=== PATIENT | male | born 1950 | race Caucasian/White ===

== ENCOUNTER → 2019-10-17 14:31 | Outpatient (CLI) | payer MEDICARE ==
[~2019-10-17 14:31] MED LIST: ALBUTEROL SULF8.5 GM INH; BAYER CHEWABLE81 MG PO; KLONOPIN1 MG PO; SYNTHROID50 MCG PO; TRAZODONE HCL150 MG PO
[2019-10-19 13:50] VITALS: BMI 21.3
== END | disposition home or self-care (01) ==
LOC: D.CT 14:31
PROVIDERS: ATTEND Family Medicine
DX: R06.02 Shortness of breath (principal); I45.19 Other right bundle-branch block

== ENCOUNTER 2019-10-19 12:18 | Inpatient (IN) | payer MEDICARE ==
[~2019-10-19] VITALS: Ht 175.3 cm; Wt 66.8 kg
--- NOTE | ~2019-10-19 | HEMODYNAMI ---
PATIENT:EN RAINEY MEDICAL RECORD: [id number] : 48 [id number] ADMISSION DATE: 10/19/19 Generatedon:10/20/20199:56 Patient name: EN RAINEY Patient #: [id number] SSN: [id number] : 1950 Date of study: 10/20/2019 Page: Of Hemodynamic Procedure Report Patient Data Patient Demographics Procedure consent was obtained First Name: EN Gender: Male Last Name: REDD : 1950 Patient #: [id number] Age: 69 year(s) Race: SSN: [id number] Additional ID: [id number] Contact details Address: [address] [place] [address] State: [place] City: [place] Zip code: [address] Admission Admission Data Admission Date: 10/19/2019 Admission Time: 12:18 Arrival Date: 10/20/2019 Arrival Time: 12:18 Admit Source: Other Insurance Payor: Medicare Room #: D.2117 [facility] #: [id number] Height (in.): 68.9 BSA: 1.79 (m2) Height (cm.): 175 BMI: 21.22 (kg/m2) Weight (lbs.): 143.3 Weight (kg.): 65 Lab Results Lab Result Date: 10/20/2019 Lab Result Time: 0:00 Biochemistry Name Units Result Min Max BUN mg/dl 22 --(----)-* 7 18 Creatinine mg/dl 1.1 --(--*-)-- 0.6 1.3 eGFR ml/min 70.73025 *-(----)-- 90 120 NONAFRICAN CBC Name Units Result Min Max Hemoglobin g/dl 14.7 --(-*--)-- 13.5 17.5 Procedure Procedure Types Cath Procedure Diagnostic Procedure [facility] w/Coronaries Sedation Charges Moderate Sedation up to 15 minutes Procedure Description Procedure Date Procedure Date: 10/20/2019 Procedure Start Time: 9:41 Procedure End Time: 9:54 Procedure Staff Name Function Tamara Post MD Performing Physician Isabel Lee RT Monitor Ruth Bustamante RT Scrub Kate Jackson RN Nurse Indication Angina Procedure Data Cath Procedure Fluoroscopy Diagnostic fluoroscopy Total fluoroscopy Time: 2 time: 2 min min Diagnostic fluoroscopy Total fluoroscopy dose: 254 dose: 254 mGy mGy Contrast Material Contrast Material Type Amount (ml) Isovue 300 45 Entry Location Entry Primary Successful Side Size Upsize Upsize Entry Closure Cueva ccessful Closure Location (Fr) 1 (Fr) 2 (Fr) Remarks Device Remarks Radial Right 6 Fr Mechanical artery Short Compression Estimated blood loss: 5 ml Diagnostic catheters Device Type Used For End Catheter Placement DIAGNOSTIC [place] 110cm 5 Multi-vessel Fr catheter ([id number]) Angiography Procedure Complications No complications Procedure Medications Medication Administration Route Dosage Oxygen etCO2 Nasal cannula 2 l/min Lidocaine 2% added to field 20 Heparin Flush Bag added to field 2 bags (1000units/500ml NS) 0.9% NaCl I.V. bolus 500 ml Radial Cocktail I.A. 1 syringe (Verapamil 2mg/Nitro 400mcg/Heparin 1500units) Plavix P.O. 300 mg Versed I.V. 1 mg Hemodynamics Rest BSA: 1.79 (m2) HGB: 14.7 (g/dl) O2 Consumption: Estimated: 206.93 (ml/min) O2 Co nsumption indexed: Estimated:115.6 (ml/min/m) Heart Rate: 70 (bpm) Pressure Samples Time Site Value (mmHg) Purpose Heart Use Rate(bpm) 9:46 LV 118/-9,6 Snapshot 87 9:47 LV 82/4,4 EDP 85 Snapshots Pre Cath Intra NCS Post Cath Vital Signs Time Heart Resp SPO2 etCO2 NIBP (mmHg) Rhythm Pain Sedation Rate (ipm) (%) (mmHg) Status Level (bpm) 9:23:36 72 10 96 32.4 123/74(103) NSR 0 (11) 10(A) , No pain 9:27:46 70 10 97 24.1 111/80(95) NSR 0 (11) 10(A) , No pain 9:31:52 66 25 96 27.1 116/77(97) NSR 0 (11) 10(A) , No pain 9:36:00 67 24 96 25.6 118/75(100) NSR 0 (11) 10(A) , No pain 9:40:10 72 28 95 24.1 116/73(88) NSR 0 (11) 10(A) , No pain 9:44:18 71 29 96 21 122/75(89) NSR 0 (11) 10(A) , No pain 9:48:27 77 24 93 24 103/72(84) NSR 0 (11) 10(A) , No pain 9:52:31 71 23 95 24.8 110/73(84) NSR 0 (11) 10(A) , No pain Medications Time Medication Route Dose Verified Delivered Reason Notes Effectiveness by by 9:22:45 Oxygen etCO2 2 l/min Tamara Love used for Nasal Sincere Jackson RN procedure cannula 9:22:53 Lidocaine 2% added 20ml Elissared Tamara for local to vial Sincere Post MD anesthetic field 9:22:58 Heparin Flush added 2 bags Tamara Mcdonald used for Bag to Sincere Post MD procedure (1000units/500ml field NS) 9:23:07 0.9% NaCl I.V. 500 ml Tamara Love Per bolus Sincere Jackson RN physician 9:38:12 Versed I.V. 1 mg Tamara Love for sedation Sincere Jackson RN 9:43:18 Radial Cocktail I.A. 1 Tamara Mcdonald for (Verapamil syringe Sincere Post MD vasodilation 2mg/Nitro 400mcg/Heparin 1500units) 9:45:39 Plavix P.O. 300 mg Tamara Love for Sincere Jackson RN antiplatelet therapy Procedure Log Time Note 9:00:13 Kate Jackson RN sent for patient. Start room use. 9:07:52 Diagnostic Cath Status : Elective 9:08:19 Indication : Angina 9:08:52 Informed consent obtained and on chart 9:12:14 Admit Source: Other 9:12:16 Arrival Date: 10/20/2019 12:18:00 PM 9:12:43 Insurance Payor : Medicare 9:12:51 Patient Height : 68.9 inches 9:12:56 Patient Weight : 143.3 lbs 9:13:38 Lab Result : eGFR NONAFRICAN 70.04291 ml/min 9:13: Lab Result : Creatinine 1.1 mg/dl : Lab Result : BUN 22 mg/dl : Lab Result : Hemoglobin 14.7 g/dl 9::19 Time tracking: Regular hours (M-F 7:00 - 5:00) 9::23 Plan of Care:Hemodynamics will remain stable., Cardiac rhythm will remain stable., Comfort level will be maintained., Respiratory function will remain adequate., Patient/ family verbilizes understanding of procedure., Procedure tolerated without complication., Recovers from procedure without complications.. 9:14:28 Patient received from Med II to CCL 2 Alert and oriented. Tansferred to table in Supine position. 9:14:29 Warm blankets applied, and kiara hugger turned on for patient comfort. 9:14:30 Correct patient and procedure confirmed by team. 9:14:30 ECG and BP/O2 sat monitors applied to patient. 9:22:34 Vital chart was started 9:22:45 Oxygen 2 l/min etCO2 Nasal cannula was administered by Kate Jackson RN; used for procedure; Verbal order read back and verified. 9:22:53 Lidocaine 2% 20ml vial added to field was administered by Tamara Post MD; for local anesthetic; Verbal order read back and verified. 9:22:58 Heparin Flush Bag (1000units/500ml NS) 2 bags added to field was administered by Tamara Post MD; used for procedure; Verbal order read back and verified. 9:23:07 0.9% NaCl 500 ml I.V. bolus was administered by Kate Jackson RN; Per physician; Verbal order read back and verified. 9:23:56 Baseline sample Acquired. 9:24:00 Rhythm: sinus rhythm 9:24:02 Full Disclosure recording started 9:24:07 H&P Date Dictated: 10/20/2019 New H&P dictated by physician.. 9:24:08 Pre-procedure instructions explained to patient. 9:24:09 Pre-op teaching completed and patient verbalized understanding. 9:24:10 Family in patients room. 9:24:12 Patient NPO since Midnight. 9:24:15 Is the patient allergic to Iodine/contrast media? No. 9:24:16 Was the patient premedicated? Yes 9:24:49 Is patient on blood thinner?Yes 9:24:52 ACC The patient was administered the following blood thiners within the last 24 hours: ACCAspirin 9:24:54 Patient diabetic? Yes. 9:24:54 If diabetic: On Metformin? No 9:24:57 Previous problem with sedation/anesthesia? No ? 9:24:58 Snore? Yes 9:24:59 Sleep apnea? No 9:25:00 Deviated septum? No 9:25:00 Opens mouth fully? Yes 9:25:01 Sticks out tongue? Yes 9:25:07 Airway obstruction? Yes COPD EMPHYSEMA 9:25:11 Dentures? Yes OUT 9:25:14 Pre procedure: right dorsailis pedis pulse 2+ Normal; easily identifiable; not easily obliterated 9:25:16 Pre procedure: left dorsailis pedis pulse 2+ Normal; easily identifiable; not easily obliterated 9:25:18 Patient pain scale 0/10 ?. 9:25:24 IV patent on arrival in left forearm with 0.9% NaCl at [facility]. 9:25:27 Lab results completed and on chart. 9:25:31 Risk of Mortality: 1.5 9:25:44 Risk of blood transfusion: 1.1 9:25:47 Risk of ASHOK: 0.4 9:25:52 Right Radial & Right Groin area was prepped with chlora-prep and draped in sterile fashion 9:25:54 Alarms reviewed by R. N. 9:25:54 Sharps counted by scrub and verified by R.N. 9:37:57 --------ALL STOP TIME OUT------ 9:37:57 Final Timeout: patient, procedure, and site verified with staff and physician. All members of the team are in agreement. 9:37:59 Right Radial & Right Groin site verified by team. 9:38:02 Fire Safety Assessment: A--An alcohol-based skin anteseptic being used preoperatively., C--Open oxygen or nitrous oxide is being used., D--An ESU, laser, or fiber-optic light is being used. 9:38:05 Physical assessment completed. ASA score P 2 - A patient with mild systemic disease as per Tamara Post MD. 9:38:08 2) 60-89 Mildly reduced kidney function, and other findings (as for stage 1) point to kidney disease. 9:38:12 Versed 1 mg I.V. was administered by Kate Jackson RN; for sedation; Verbal order read back and verified. 9:38:12 Maximum allowable contrast dose (3.7 X eGFR X 0.75)194 ml. 9:38:16 Sedation plan: IV Moderate Sedation Medication:Versed, Fentanyl 9:38:25 Use device set Radial Dx or PCI 9:38:27 ACIST Syringe (82178) opened to sterile field. 9:38:27 Medline Cath Pack ([id number]) opened to sterile field. 9:38:27 Bag Decanter (2002) opened to sterile field. 9:38:28 ACIST Hand Control (19675) opened to sterile field. 9:38:28 ACIST Manifold (79135) opened to sterile field. 9:38:28 Tegaderm 4 x 4 (1626W) opened to sterile field. 9:38:30 MBrace Wrist Support ([id number]) opened to sterile field. 9:38:32 EMERALD Guide Wire (631-929) opened to sterile field. 9:38:32 SHEATH 6FR RAIN (5975142) opened to sterile field. 9:41:53 Procedure started. 9:41:58 Local anesthetic to right radial artery with Lidocaine 2% by Tamara Post MD.INITIAL ACCESS ONLY 9:42:07 A 6 Fr Short sheath was inserted into the Right Radial artery 9:42:19 Zero performed for pressure channel P1 9:43:18 Radial Cocktail (Verapamil 2mg/Nitro 400mcg/Heparin 1500units) 1 syringe I.A. was administered by Tamara Post MD; for vasodilation; Verbal order read back and verified. 9:45:03 A DIAGNOSTIC [place] 110cm 5 Fr catheter (163533) was advanced over the wire and used for Multi-vessel Angiography. 9:45:39 Plavix 300 mg P.O. was administered by Kate Jackson RN; for antiplatelet therapy; Verbal order read back and verified. 9:46:36 LV hemodynamics recorded. 9:46:37 LV gram done using CARLOS 9:46:40 Injector settings: Ml/sec: 12, Volume: 8, 9:46:59 EF : 60 % 9:47:28 RCA angiography performed. 9:47:33 Injector settings: Ml/sec: 2, Volume: 4, 9:49:06 LCA angiography performed. 9:49:08 Injector settings: Ml/sec: 2, Volume: 4, 9:51:07 Catheter removed. 9:51:44 ZEPHYR REGULAR TR BAND (325706) opened to sterile field. 9:52:23 Sheath removed intact; hemostasis achieved with Mechanical Compression to the Right Radial artery. 9:52:25 Procedure ended.(Physican Out) 9:53:06 Fluoroscopy time 02.00 minutes. 9:53:10 Fluoroscopy dose: 254 mGy 9:53:10 Flurop Dose total: 254 9:53:14 Dose Area Product 87893 mGy/cm. 9:53:19 Contrast amount:Isovue 300 45ml. 9:53:21 Maximum allowable dose exceeded? No. 9:53:22 Sharps counted by scrub and verified by R.N. 9:53:25 Palmer band inflated with 9cc of air. 9:53:26 Insertion/operative site no bleeding no hematoma. 9:53:30 Post right radial artery:stable 9:53:32 Post Procedure Pulses reassessed and unchanged 9:53:35 Post procedure rhythm: unchanged. 9:53:37 Estimated blood loss: 5 ml 9:53:38 Post procedure instruction explained to patient.Patient verbalizes understanding. 9:53:39 Patient needs reinforcement of post procedure teaching. 9:53:48 Procedure type changed to Cath procedure, Diagnostic procedure, C, [facility] w/Coronaries, Sedation Charges, Moderate Sedation up to 15 minutes 9:53:49 Procedure and supply charges have been captured, reviewed, submitted and are correct. 9:53:53 Procedure Complication : No complications 9:53:56 Vital chart was stopped 9:53:59 [facility] Findings: MVD- MD will discuss options w/ pt 9:54:01 Operative report dictated upon procedure completion. 9:54:01 See physician's report for complete and final results. 9:54:03 Report given to [facility]. 9:54:05 Patient transfered to [facility] with Stretcher. 9:54:08 Procedure ended. 9:54:08 Full Disclosure recording stopped 9:54:16 End room use (Document Last) 9:54:49 End room use (Document Last) Device Usage Item Name Manufacture Quantity Catalog Hospital Part Current [facility] l Lot# / Number Charge Number Stock Stock Serial# Code ACIST Acist 1 [id number] 196815 [id number] 20 Syringe Medical (48199) Systems Inc Medline Medline 1 [id number] [id number] 74069 603797 5 Cath Pack ([id number]) Bag Microtek 1 2001S 303135 62404 987856 5 Decanter Medical Inc. () ACIST Hand Acist 1 81279 689680 765455 184337 5 Control Medical (29636) Systems Inc ACIST Acist 1 60159 726757 321310 668942 5 Manifold Medical (41499) Systems Inc Tegaderm 4 3M 1 1626W 240668 348366 799338 5 x 4 (1626W) MBrace Advanced 1 [id number] 452862 43634 871775 5 Wrist Vascular Support Dynamics ([id number]) EMERALD Cardinal 1 692-098 491188 460028 610204 5 Guide Wire Health (149-456) SHEATH 6FR Cardinal 1 0623495 819213 6274898 390442 5 [facility] (1608042) DIAGNOSTIC Terumo 1 35-6101 289742 025618 108188 5 [place] 110cm 5 Fr catheter (279111) ZEPHYR Cardinal 1 960410 347044 6821737 284623 5 REGULAR TR Health BAND (593838) Signature Audit [place] Stage Time Signature Unsigned Intra-Procedure 10/20/2019 Ruth Bustamante 9:54:49 AM RT(R) Intra-Procedure 10/20/2019 Kate Jackson RN 9:55:13 AM Intra-Procedure 10/20/2019 Tamara Post MD 9:56:37 AM Signatures Performing Physician : Signature : Tamara Post MD Date : Time : Monitor : Isabel Lee Signature : RT Date : Time : Nurse : Kate Jackson RN Signature : Date : Time : [address] [place] [address]
[2019-10-19] MEDS ORDERED: TRAZODONE HCL150 MG PO (12:49)
[2019-10-19] MEDS ORDERED: SYNTHROID50 MCG PO (12:49)
[2019-10-19] MEDS ORDERED: BAYER CHEWABLE81 MG PO (12:51)
[2019-10-19] MEDS ORDERED: KLONOPIN1 MG PO (12:51)
[2019-10-19 12:52] VITALS: BP 124/69; BMI 21.3
[2019-10-19] MEDS ORDERED: ALBUTEROL SULF8.5 GM INH (12:52)
--- NOTE | 2019-10-19 13:16 | NUR ---
1232-RECEIVED TO ROOM VIA WHEELCHAIR WITH COMPLAINTS OF LEFT ARM TINGLING X 4-6 WEEKS. DENIES CHEST PAIN . WILL ADMIT.
--- NOTE | 2019-10-19 13:25 | NUR ---
22 G X 1 STICK TO LEFT WRIST. TOLERATED WELL. SWAP CAP PLACED AND LINE DATED. DR KINNEY IN AT BEDSIDE TO SEE PATIENT AND SPOUSE. CALL LIGHT IN USE AND ALL FALL PRECAUTIONS IN PLACE EXCEPT ALARM. PATIENT STATES HE WILL USE THE CALL LIGHT. ALERT AND ORIENTED.
[2019-10-19 13:33] LABS: BASOPHILS 0.2 % (0-2); EOSINOPHILS 0.2 % (0-7); HEMATOCRIT 43.4 % (42.0-54.0); HEMOGLOBIN 14.7 g/dL (13.5-17.5); IMMATURE GRANULOCYTES 0.3 % (0-5); MCH 28.5 pg (26.0-34.0); MCHC 33.9 g/dL (31.0-37.0); MCV 84.3 fL (80.0-100.0); MEAN PLATELET VOLUME 8.8 fL (7.4-10.4); MONOCYTES 7.4 % (2-11); NEUTROPHILS 83.9 % (40-80); PLATELET COUNT 269 10x3/uL (130-400); RBC 5.15 10x6/uL (4.20-6.10); WBC 10.7 10x3/uL (4.8-10.8)
[2019-10-19 14:07] LABS: CALC OSMOLALITY 276 mosm/kg (275-300); CALCIUM 8.8 mg/dL (8.5-10.1); CARBON DIOXIDE 31.7 mmol/L (21.0-32.0); CHLORIDE - SERUM 102 mmol/L (98-107); CKMB 1.5 U/L (0.0-3.6); CREATINE KINASE 50 UL (21-232); CREATININE - SERUM 1.1 mg/dL (0.6-1.3); GLUCOSE 106 mg/dL (74-106); POTASSIUM - SERUM 4.4 mmol/L (3.5-5.1); SODIUM 137 mmol/L (136-145); UREA NITROGEN 22 mg/dL (7-18); eGFR NON AFRICAN AMERICAN 70 mL/min (90-120)
[2019-10-19 14:09] LABS: TROPONIN-I < 0.017 ng/mL (0.000-0.060)
[2019-10-19 14:29] LABS: CHOL - HDL RATIO 3.1 ratio (2.3-4.9); LDL-HDL RATIO 1.8 ratio (1.5-3.5)
[2019-10-19 16:05] VITALS: BP 126/76
[2019-10-19 20:00] VITALS: BP 113/70
[2019-10-20] VITALS: BP 114/59
[2019-10-20 04:00] VITALS: BP 125/72
--- NOTE | 2019-10-20 08:15 | HP ---
PATIENT: EN RAINEY MEDICAL RECORD: [id number] ACCOUNT: [id number] LOCATION:[address] : [birth year] ADMISSION DATE: 10/19/19 PCP: YSABEL KINNEY MD HISTORY AND PHYSICAL EXAMINATION REASON FOR ADMISSION: Exertional shortness of breath and left arm tingling. HISTORY OF PRESENT ILLNESS: The patient is a 69-year-old male with history of well-controlled metabolic syndrome and remote heavy smoking history. He states for the last 6 months he has had fatigue, but noticed if he walked any distance or up a hill he would develop acute shortness of breath, had to stop and rest. The last week, he has noticed his left arm will tingle as well during these episodes. He denies any cough. He came to the office yesterday with these symptoms. An EKG showed a new right bundle branch block. His saturation is 90% on room air, but would drop with ambulation to 92%. CTA of the lungs was done yesterday showing no evidence of PE, but did show coronary calcifications. Echo this morning showed an EF of 60% with no wall motion abnormalities. He is now being directly admitted to observation for cardiology evaluation. He has been extremely fatigued. PAST MEDICAL HISTORY: COPD, greater than 30+ pack year history of smoking, history of left adrenal adenoma, anxiety, chronic osteoarthritis, BPH, symptomatic cholelithiasis, type 2 diabetes mellitus with A1c of 5.6, history of kidney stones, hypothyroidism. PAST SURGICAL HISTORY: He has had kidney stones removed previously. FAMILY HISTORY: Father at 81, had cancer of the prostate, diabetes and of a stroke. Mother is alive with arthritis. One brother with rectal cancer, living. SOCIAL HISTORY: He is retired, remote smoker, 30+ pack year history of smoking. Occasional alcohol. He is . REVIEW OF SYSTEMS: GENERAL: Fatigue for the last 6 months. No weight change. HEENT: Wears glasses to read. No recent visual change, sinus congestion, sore throat, or hearing loss. RESPIRATORY: Denies cough, congestion, but on walking any distance or up a hill he will develop acute onset of shortness of breath and have to stop. CARDIAC: He has exertional left arm tingling with dyspnea. No peripheral edema. No palpitations. GASTROINTESTINAL: No nausea, vomiting, change in stools or blood per rectum. He does have postprandial right upper quadrant dyspepsia intermittently with loose stools. He has fatty food intolerance. GENITOURINARY: Nocturia once nightly. ENDOCRINE: Denies polyuria, polydipsia, heat or cold intolerance. NEUROLOGIC: No history of stroke, TIA or vascular headaches. INTEGUMENT: No rash or itching. PHYSICAL EXAMINATION: VITAL SIGNS: His height is 5 feet 9 inches, his weight is 144.2 pounds, BMI is 21.3, blood pressure 120/62, sats ____ on room air at rest, 92% with walking. He is afebrile. GENERAL: No acute distress. HISTORY AND PHYSICAL [id number] EN RAINEY EYES: Clear. Oropharynx unremarkable. NECK: Supple, without bruits or masses. CHEST: Distant breath sounds without wheeze or rales. Normal AP diameter. HEART: Regular rate and rhythm without murmur. ABDOMEN: Soft, nontender. No bruits. GENITOURINARY: Deferred. EXTREMITIES: No CCE. NEUROLOGICAL: Intact. GAIT: Normal. LABORATORY AND DIAGNOSTIC DATA: EKG shows bundle branch block serially with sinus rhythm. A1c is 5.6, white count is 10,400, H&H of 15 and 43.7 respectively. Thyroid functions were normal. Creatinine is 1.17. Fasting blood sugar is 111, potassium is 4.6, BUN is 19. CT of the lungs, 10/18/2019, showed coronary calcifications, but no PE. ASSESSMENT: 1. Exertional dyspnea with left arm pains, probable angina equivalent. 2. Right bundle-branch block. 3. Chronic obstructive pulmonary disease. 4. Nicotine history. 5. Metabolic syndrome, well controlled. 6. Chronic anxiety. 7. Symptomatic cholelithiasis. 8. Benign prostatic hyperplasia. PLAN: The patient admitted to cardiac floor for monitoring serial cardiac enzymes. Cardiology consultation or either thallium stress and/or cardiac catheterization. TRANSINT:[id number] Voice Confirmation ID: [id number] DOCUMENT ID: [id number] YSABEL KINNEY MD at 0815 CC: [id number] DICTATION DATE: 10/19/19 1209 DICTATING MACHINE TYPIST: 10/19/19 1324 [place] [address]
[2019-10-20 15:48] VITALS: BP 112/59
--- NOTE | 2019-10-20 20:00 | NUR ---
REPORT RECIEVED AND INITIAL ROUNDS COMPLETED. CALL LIGHT IN REACH.
[2019-10-20 20:30] VITALS: BP 112/60
--- NOTE | 2019-10-20 21:41 | NUR ---
BEDTIME MEDS GIVEN. TALKED ABOUT PT BEING SCHEDULED FOR CABG ON 10/24/19. HE HAS A GOOD SUPPORT SYSTEM.
[2019-10-21 00:26] VITALS: BP 105/61
[2019-10-21 04:30] VITALS: BP 102/57
[2019-10-21 05:56] LABS: ANION GAP 7.3 mmol/L (8-16); CALCIUM 8.3 mg/dL (8.5-10.1); CARBON DIOXIDE 28.8 mmol/L (21.0-32.0); CREATININE - SERUM 1.1 mg/dL (0.6-1.3); POTASSIUM - SERUM 4.1 mmol/L (3.5-5.1)
[2019-10-21 10:06] VITALS: BP 102/71
[2019-10-21 13:12] VITALS: BP 119/64
[2019-10-21 17:26] VITALS: BP 101/50
[2019-10-21 20:30] VITALS: BP 115/60
--- NOTE | 2019-10-21 22:23 | NUR ---
ORAL MEDICATIONS GIVEN. PT RESTING IN BED. CPOC.
[2019-10-22 04:30] VITALS: BP 113/64
[2019-10-22 06:05] LABS: BASOPHILS 0.4 % (0-2); HEMATOCRIT 40.1 % (42.0-54.0); HEMOGLOBIN 13.1 g/dL (13.5-17.5); IMMATURE GRANULOCYTES 0.4 % (0-5); LYMPHOCYTES 14.1 % (15-50); MCH 28.4 pg (26.0-34.0); MCHC 32.7 g/dL (31.0-37.0); MEAN PLATELET VOLUME 9.1 fL (7.4-10.4); MONOCYTES 9.9 % (2-11); NEUTROPHILS 70.2 % (40-80); PLATELET COUNT 244 10x3/uL (130-400); RBC 4.61 10x6/uL (4.20-6.10); RDW 13.5 % (11.5-14.5); WBC 6.7 10x3/uL (4.8-10.8)
[2019-10-22 06:40] LABS: APTT 32.6 SECONDS (22.8-39.4); INR 1.14 (0.85-1.17); PROTIME 14.6 SECONDS (11.6-15.0)
[2019-10-22 07:47] LABS: CALC OSMOLALITY 281 mosm/kg (275-300); CARBON DIOXIDE 22.8 mmol/L (21.0-32.0); CHLORIDE - SERUM 109 mmol/L (98-107); GLUCOSE 101 mg/dL (74-106); POTASSIUM - SERUM 3.8 mmol/L (3.5-5.1); SODIUM 141 mmol/L (136-145); UREA NITROGEN 14 mg/dL (7-18); eGFR NON AFRICAN AMERICAN 78 mL/min (90-120)
[2019-10-22 10:01] VITALS: BP 125/63
[2019-10-22 14:10] VITALS: BP 140/62
[2019-10-22 18:22] VITALS: BP 125/57
--- NOTE | 2019-10-22 19:46 | NUR ---
RECIEVED UP AMBULATING AROUND ROOM WITH SPOUSE AT BEDSIDE. ALERT AND ORIENTED X4. TELEMETRY IN PLACE. IV TO LT WRIST SL. DSG INTACT WITH NO REDNESS OR SWELLING. DENIES ANY NEEDS AT THIS TIME.
[2019-10-22 20:30] VITALS: BP 113/57
[2019-10-23 00:17] VITALS: BP 109/50
[2019-10-23 04:30] VITALS: BP 118/66
[2019-10-23 05:45] LABS: BASOPHILS 0.3 % (0-2); EOSINOPHILS 4.5 % (0-7); HEMATOCRIT 40.9 % (42.0-54.0); HEMOGLOBIN 13.4 g/dL (13.5-17.5); IMMATURE GRANULOCYTES 0.5 % (0-5); LYMPHOCYTES 11.2 % (15-50); MCH 28.6 pg (26.0-34.0); MCHC 32.8 g/dL (31.0-37.0); MCV 87.4 fL (80.0-100.0); MEAN PLATELET VOLUME 9.4 fL (7.4-10.4); MONOCYTES 10.6 % (2-11); NEUTROPHILS 72.9 % (40-80); PLATELET COUNT 243 10x3/uL (130-400); RBC 4.68 10x6/uL (4.20-6.10); RDW 13.6 % (11.5-14.5); WBC 6.6 10x3/uL (4.8-10.8)
[2019-10-23 06:23] LABS: ALBUMIN 3.4 g/dL (3.4-5.0); ANION GAP 8.2 mmol/L (8-16); BILIRUBIN - TOTAL 0.35 mg/dL (0.2-1.3); CALCIUM 8.3 mg/dL (8.5-10.1); CREATININE - SERUM 1.1 mg/dL (0.6-1.3); PHOSPHOROUS 3.1 mg/dL (2.5-4.9); PROTEIN - SERUM 5.9 g/dL (6.4-8.2); T4 THYROXIN - FREE 1.12 ng/dL (0.76-1.46); THYROID STIMULATING HORMONE 2.49 uIU/mL (0.36-3.74)
[2019-10-23 06:25] LABS: CARBON DIOXIDE 29.8 mmol/L (21.0-32.0)
--- NOTE | 2019-10-23 07:15 | NUR ---
RECEIVED PT IN BED EYES CLOSED RESP UNLABORED SKIN W/D COLOR WNL DENIES ANY PAIN OR NEEDS AT THIS TIME
[2019-10-23 09:00] VITALS: BP 122/60
[2019-10-23 11:00] VITALS: BP 124/74
[2019-10-23 13:12] LABS: BILIRUBIN NEGATIVE (NEGATIVE); GLUCOSE NEGATIVE (NEGATIVE); KETONE NEGATIVE (NEGATIVE); NITRITE NEGATIVE (NEGATIVE); UROBILINOGEN NORMAL (NORMAL)
[2019-10-23 13:57] VITALS: BMI 21.2
[2019-10-23 15:00] VITALS: BP 110/55
[2019-10-23 16:17] LABS: APTT 30.7 SECONDS (22.8-39.4); INR 1.13 (0.85-1.17); PROTIME 14.4 SECONDS (11.6-15.0)
--- NOTE | 2019-10-23 19:30 | NUR ---
RECEIVED BEDSIDE REPORT. PATIENT IS ALERT AND ORIENTED, RESTING COMFORTABLY IN BED. RESPIRATIONS ARE EVEN AND UNLABORED. NO S/S OF DISTRESS. NO C/O PAIN. CALL LIGHT WITHIN REACH. WILL CPOC.
[2019-10-23 21:21] VITALS: BP 133/57
[2019-10-24] VITALS (28 sets, daily range): BP systolic 97–138; BP diastolic 49–64; Ht 175.3 cm; Wt 66.8 kg
[2019-10-24 07:30] LABS: HEMATOCRIT 36.9 % (42.0-54.0); HEMOGLOBIN 12.1 g/dL (13.5-17.5)
--- NOTE | 2019-10-24 13:30 | NUR ---
PT ARRIVED IN THE UNIT. PT HOOKED TO ICU MONITORS. PT SEDATED AND ON THE VENTILATOR. 8.0 ETT NOTED. SEE RT FLOW SHEET FOR VENT SETTINGS. RIGHT IJ CVL NOTED. SEE IV FLOW SHEET FOR DRUGS AND RATES. MIDSTERNAL DRESSING C/D/I. SUBSTERNAL DRESSING C/D/I. SUBSTERNAL CT X2 LABLED A AND P NOTED. BOTH CONNECTED TO 20 CM OF H2O SUCTION. NO AIR LEAK NOTED. LEFT SUBSTERNAL VANESSA DRAIN NOTED COMPRESSED. ALL CT NOTED TO HAVE BLOODY DRAINAGE. RIGHT RADIAL BETTY NOTED. GOOD WAVE FORM. CAP REFILL <3 SECONDS. FC NOTED WITH CLEAR, YELLOW URINE. BLE WRAPPED IN COBAN FROM ANKLE TO THIGH. BLE PULSES PALPABLE. PT HOOKED TO A TPM BUT IT IS TURNED OFF PER DR VILLALBA. NSR. VSS AT THIS TIME. CALL LIGHT IN REACH. WILL CONT POC.
--- NOTE | 2019-10-24 15:16 | NUR ---
PT HAD A BRIEF RUN OF ATRIAL FIBRILLATION RATE 130. PT SELF CONVERTED. DR VILLALBA CALLED AND NOTIFIED. HE WAS ALSO NOTIFIED OF ABG RESULTS. OK TO EXTUBATE. START AMIODORONE 150 IV BOLUS AND THEN AMIODORONE 1MG/H X6 HOURS THEN DECREASE TO 0.5 MG/H
--- NOTE | 2019-10-24 15:53 | NUR ---
PT EXTUBATED TO 4L VIA NC. PT INSTRCUTED TO TCDB. PT TAUGHT TO SPLINT HIS CHEST WITH A HEART PILLOW. PT PULLING ABOUT 250 ON HIS IS. PRN MORPHINE GIVEN. WILL CONT TO MONITOR.
--- NOTE | 2019-10-24 17:21 | NUR ---
PRN MORPHINE GIVEN. PAIN GETTING BETTER UNDER CONTROL. PT TOLERATING PO ICE CHIPS WELL. WILL CONT POC.
--- NOTE | 2019-10-24 17:40 | MORECARE ---
CASE MANAGEMENT DISCHARGE SUMMARY PATIENT: EN RAINEY UNIT: [id number] ADM DATE: 10/20/19 AGE: 69 : 49 SEX: M ROOM/BED: [facility] AUTHOR: ADAN FISHER PHYSICIAN: REFERRING PHYSICIAN: YSABEL KINNEY MD DATE OF SERVICE: 10/24/19 Discharge Plan Patient Name[facility] EN RAINEY [facility] [facility] 1950 Planned Disposition: Anticipated Discharge Date: Discharge Date: Expected LOS: Initial Reviewer: [email or web address] Initial Review Date: 10/19/2019 Generated: 10/24/19 6:39 pm Comments DCP- Discharge Planning Updated by [email or web address]: Sue Schaeffer on 10/24/19 4:[address] Patient had CABG today patient drowsy CM unable to complete discharge planning assessment. CM will continue to follow and assist as needed with discharge planning / needs. Coverage Notice Reviewer: [email or web address] Donavon Ureña Notice Issued Date-Time: 10/19/2019 16:39 Notice Type: Medicare Outpatient Observation Notice Notice Delivered To: Patient Relationship to Patient: Self Senior Reservations Agent Name: Delivery Method: HAND - Hand Delivered Tamara Days: Prior Verbal Notification: Recipient Understood Notice: Yes Recipient Signature: Yes Med Rec Note Co-signed by Attending: Coverage Notice Comment: [facility]INS DELIVERED, EXPLAINED, SIGNED, GIVEN, COPY PLACEDIN MR Patient Name: EN RAINEY Page [phone] at 1740 All edits/amendments must be made on the electronic document DICTATION DATE: 10/24/191738 MILITARY PROFESSIONAL: LILY 10/24/19 173 RPT#: [id number] DC DATE: STATUS: ADM IN [facility] [address] [place] [address] END OF REPORT
--- NOTE | 2019-10-24 19:00 | NUR ---
REPORT RECEIVED. RECEIVED PATIENT IN BED, AWAKE AND ALERT. ORIENTED X 4. ASSESSMENT COMPLETED PER FLOW SHEET WITH NO ACUTE DISTRESS OBSERVED. MONITORS CONNECTED TO PATIENT WITH ALARMS SET. VSS. MEDIASTINAL CHEST TUBES X 2 INTACT/SECURE/PATENT DRAINING SMALL AMOUNT OF BLOODY FLUID INTO COLLECTION CHAMBERS. CT TO 20 CM WALL SUCTION WITH NO AIR LEAK SEEN. CALL LIGHT IN REACH AND ABLE TO UTILIZE TO MAKE NEEDS KNOWN. INSTRUCTED ON USE OF INCENTIVE SPIROMETER, RETURN DEMONSTRATED WITH GOOD EFFORT. PULLED 1500. JHON WELL. WILL CONT CURRENT POC
--- NOTE | 2019-10-24 23:00 | NUR ---
AWAKE AND ALERT. USING INCENTIVE SPIROMETER DIRECTED. REASSESSMENT COMPLETED PER FLOW SHEET WITH NO ACUTE DISTRESS OBSERVED. VSS. CALL LIGHT IN REACH. CONT CURRENT POC
[2019-10-25] VITALS (22 sets, daily range): BP systolic 102–131; BP diastolic 51–91
--- NOTE | 2019-10-25 00:15 | NUR ---
PATIENT DANGLED AT BEDSIDE. JHON WELL. VSS.
--- NOTE | 2019-10-25 01:00 | NUR ---
AWAKE AND ALERT. VSS. CALL LIGHT IN REACH
--- NOTE | 2019-10-25 03:00 | NUR ---
PATIENT AWAKE AND ALERT. REASSESSMENT COMPLETED PER FLOW SHEET WITH NO ACUTE DISTRESS OBSERVED. USING INCENTIVE SPIROMETER DIRECTED, PULLING 1500. VSS. WILL CONTINUE CURRENT POC. CALL LIGHT IN REACH
[2019-10-25 05:13] LABS: HEMATOCRIT 36.2 % (42.0-54.0); HEMOGLOBIN 11.7 g/dL (13.5-17.5); MCH 28.1 pg (26.0-34.0); MCHC 32.3 g/dL (31.0-37.0); MEAN PLATELET VOLUME 9.2 fL (7.4-10.4); RBC 4.16 10x6/uL (4.20-6.10); RDW 13.8 % (11.5-14.5); WBC 17.5 10x3/uL (4.8-10.8)
[2019-10-25 05:46] LABS: ALBUMIN 2.6 g/dL (3.4-5.0); ALKALINE PHOSPHATASE 46 U/L (30-120); ALT (SGPT) 19 U/L (10-68); BILIRUBIN - TOTAL 0.49 mg/dL (0.2-1.3); CALC OSMOLALITY 278 mosm/kg (275-300); CALCIUM 7.3 mg/dL (8.5-10.1); CARBON DIOXIDE 26.5 mmol/L (21.0-32.0); CHLORIDE - SERUM 106 mmol/L (98-107); CREATININE - SERUM 0.9 mg/dL (0.6-1.3); POTASSIUM - SERUM 4.7 mmol/L (3.5-5.1); PROTEIN - SERUM 4.8 g/dL (6.4-8.2); SODIUM 138 mmol/L (136-145); UREA NITROGEN 15 mg/dL (7-18); eGFR NON AFRICAN AMERICAN 89 mL/min (90-120)
[2019-10-25 05:54] LABS: GLUCOSE 139 mg/dL (74-106)
--- NOTE | 2019-10-25 06:30 | NUR ---
CHG BATH GIVEN. SUBSTERNAL DRSG CHANGE PERFORMED. JHON WELL. VSS. ASSISTED UP TO BEDSIDE CHAIR. JHON WELL.
--- NOTE | 2019-10-25 09:41 | OP ---
PATIENT NAME: EN RAINEY MEDICAL RECORD: [id number] :48 LOCATION:D.CVI D.CV02 ADMISSION DATE:10/20/19 SURGEON: JEISON VILLALBA MD DATE OF OPERATION: 10/24/2019 SURGEON: Jeison Villalba MD PROCEDURE PERFORMED: 1. Coronary artery bypass graft times 3 (left internal mammary LAD, reverse saphenous vein graft from aorta to obtuse marginal, aorta to acute marginal). 2. Bilateral endoscopic saphenous vein harvest. 3. Bronchoscopy. 4. Lysis of left upper lobe adhesions. PREOPERATIVE DIAGNOSIS: Coronary artery disease with acute coronary syndrome and severe proximal LAD stenosis. POSTOPERATIVE DIAGNOSES: 1. Coronary artery disease with acute coronary syndrome and severe proximal lad stenosis. 2. Severe bullous emphysema with large bulla left upper lobe. ANESTHESIA: General endotracheal anesthesia. BLOOD LOSS: Total cardiopulmonary bypass with Cell Saver retransfusion. COMPLICATIONS: None. SPECIMEN: None. CONDITION: Stable. DISPOSITION: ICU. OPERATIVE FINDINGS: 1. Bronchoscopy with no right middle lobe stenosis or narrowing, but some mucus throughout the tracheobronchial tree. 2. Thin wall of the greater saphenous vein below the mid thigh on both sides, not acceptable for use. Therefore, bilateral endoscopic saphenous vein harvest with the best portion of vein going to the large acute marginal, it crossed the inferior wall of the right ventricle to supply the distal septum. 3. 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 4. Transesophageal echocardiography with good contractility, somewhat increased after bypass and mildly dilated left ventricular cavity, but a normal size heart intraoperatively. INDICATION: Acute coronary syndrome, severe history of lung disease. PROCEDURE IN DETAIL: The patient was brought to the operative suite. General anesthesia was obtained, the patient was prepped and draped. Endoscopic saphenous vein harvested from right lower extremity was performed first. The side branch divided with electrocautery, vessel ligated proximal and distally and removed. The portion below the mid-thigh was not usable, possibly was a dual system, but the vein was thin walled with too many leakage sites. One good OPERATIVE REPORT [id number] EN RAINEY section of vein from the upper thigh was used. Therefore endoscopic saphenous vein harvest left lower extremity performed again, at the vessels ligated the portion near the knee was not usable. All vessels were cannulated, side branches were tied or clipped and thin sites were oversewn. Median sternotomy incision was made. Subcutaneous tissue divided by electrocautery. Sternum was divided with a saw. Left hemisternum was elevated. Left pleural cavity was entered. Left internal mammary and vein were taken down as a pedicle graft. Sternal retractor was placed. Pericardium was opened. Heparin was given. Aorta was cannulated. Dual stage venous cannula was inserted. Left internal mammary artery was clipped and made ready for anastomosis. Adhesions were taken down to the left upper lobe to allow access to the left side of the pericardium with the patient on cardiopulmonary bypass. Sites for distal anastomosis were selected. The patient's temperature drifted downwardly. Antegrade cardioplegia cannula was inserted. Crossclamp was placed. Cardioplegia was given antegrade and this repeated at 15 minute intervals including down the completed vein graft. Distal anastomosis was performed in standard technique. Proximal anastomosis with single cross-clamp technique. Aortic root was de-aired. Proximal anastomosis tied down. Grafts de-aired and flow restored. Proximal and distal anastomotic sites inspected for bleeding. The patient was in a spontaneous rhythm, weaned from cardiopulmonary bypass and was stable. The patient was decannulated. The cannula sites were oversewn. Protamine was given. Thorough irrigation was undertaken. Graft lay appropriately. Hemostasis was ensured. Ventricular pacing wires were placed. Drains were placed in the mediastinum and left pleural cavity. Pericardial fat was loosely reapproximated. Left chest was evacuated and irrigated. The sternum was closed with wires. Fascia was closed. Subcutaneous tissues were closed. Skin was closed. Dermabond was placed. The needle and sponge counts were reported as correct and the patient was taken to ICU in stable condition. TRANSINT:[id number] Voice Confirmation ID: [id number] DOCUMENT ID: [id number] JEISON VILLALBA MD at 0941 CC: YSABEL SAWANT M.D., JOSHUA ROWLEY MD and YSABEL KINNEY [id number] DICTATION DATE: 10/24/19 1328 HYDRAULIC DESIGN ENGINEER: 10/24/19 2300 ADM IN [facility] [address] [place] [address]
--- NOTE | 2019-10-25 10:15 | NUR ---
DR VILLALBA AT BED SIDE CHEST TUBES REMOVED. A LINE REMOVED AND LOWE REMOVED. PT POSITIONED FOR COMFORT. WILL CONTINEU TO MONITOR PT.
--- NOTE | 2019-10-25 10:52 | TEE ---
PATIENT:EN RAINEY MEDICAL RECORD: [id number] LOCATION:[place] [address] AGE OF PATIENT: 69 ADMISSION DATE: 10/20/19 SEX: M REFERRING PHYSICIAN: INTERPRETING PHYSICIAN: LAURA WESLEY MD TRANSESOPHAGEAL ECHOCARDIOGRAM Date: 10/24/19 DIPTI CHARGE Y INDICATIONS: CABG PREMEDICATIONS: PATIENT'S RESPONSE PROCEDURE DOPPLER MEASUREMENTS: LVIT LA PA RA LVOT RVOT Asc. Ao AV Gradient Peak AV Mean AV Area MV Gradient Peak MV Mean MV Area INTERPRETATION: Doppler: 2-D: COLOR FLOW DOPPLER NORMAL SALINE STUDY: MISCELLANOUS: DIAGNOSIS: PLAN: Sales Support Coordinator:3 Dr. Blanco Smog Technician: Winifred NOE COMMENTS: DATE OF SERVICE: 10/24/2019 PROCEDURE: Intraoperative DIPTI. Preop no LVH. LV internal dimensions are normal. Wall motion is normal. EF is greater than or equal to 55%. Aortic valve is tricuspid with good valve excursion. Left atrium appears normal. Mitral valve has normal excursion and trivial MR. TRANSESOPHAGEAL ECHOCARDIOGRAM REPORT [id number] EN RAINEY Postop good contractility of left inferior jacobson. Aortic valve appears normal with good valve excursion. Left atrium as well as mitral valve appears normal with trivial MR. TRANSINT:[id number] Voice Confirmation ID: [id number] DOCUMENT ID: [id number] at 1052 CC: [id number] DICTATION DATE: 10/24/19 1436 METAL WORK DUCT INSTALLER: 10/25/19 0701 ADM IN [facility] [address] [place] [id number]
--- NOTE | 2019-10-25 11:09 | NUR ---
Nutrition Follow-up: POD 1 CABG. Was eating well prior to surgery. Diet: Diabetic Wt: 156.6# (10/24); 143# (10/23); 144# (10/18) Last BM: 10/18 Labs noted: Glu 139, Ca 7.3, Alb 2.6 Meds noted: Colace, Pepcid -Encourage PO intake and honor food preferences within diet restrictions. -Monitor wt. -RD following.
[2019-10-25 11:10] LABS: IMMUNOGLOBULIN E 31 IU/mL (6-495)
--- NOTE | 2019-10-25 14:43 | MORECARE ---
CASE MANAGEMENT DISCHARGE SUMMARY PATIENT: EN RAINEY UNIT: [id number] ADM DATE: 10/20/19 AGE: 69 : 49 SEX: M ROOM/BED: [facility] AUTHOR: ADAN FISHER PHYSICIAN: REFERRING PHYSICIAN: YSABEL KINNEY MD DATE OF SERVICE: 10/25/19 Discharge Plan Patient Name: EN RAINEY Facility: [facility]:[place] : 1950 Planned Disposition: Home Anticipated Discharge Date: Discharge Date: Expected LOS: Initial Reviewer: [email or web address] Initial Review Date: 10/19/2019 Generated: 10/25/19 3:42 pm Comments DCP- Discharge Planning Updated by [email or web address]: Sue Schaeffer on 10/24/19 4:[address] Patient had CABG today patient drowsy CM unable to complete discharge planning assessment. CM will continue to follow and assist as needed with discharge planning / needs. Coverage Notice Reviewer: [email or web address] Donavon Ureña Notice Issued Date-Time: 10/19/2019 16:39 Notice Type: Medicare Outpatient Observation Notice Notice Delivered To: Patient Relationship to Patient: Self Hand Wrapper Operator Name: Delivery Method: HAND - Hand Delivered Tamara Days: Prior Verbal Notification: Recipient Understood Notice: Yes Recipient Signature: Yes Med Rec Note Co-signed by Attending: Coverage Notice Comment: HAWKINS DELIVERED, EXPLAINED, SIGNED, GIVEN, COPY PLACEDIN MR Last DP export: 10/24/19 4:40 p Patient Name: EN RAINEY Page [id number] at 1443 All edits/amendments must be made on the electronic document DICTATION DATE: 10/25/19 1442 FRIT MAKER: LILY 10/25/19 1442 RPT#: [id number] DC DATE: STATUS: ADM IN [facility] [address] [place] [address] END OF REPORT
--- NOTE | 2019-10-25 14:50 | MORECARE ---
CASE MANAGEMENT DISCHARGE SUMMARY PATIENT: EN RAINEY UNIT: [id number] ADM DATE: 10/20/19 AGE: 69 : 49 SEX: M ROOM/BED: D.[facility] AUTHOR: NATALIADOC PHYSICIAN: REFERRING PHYSICIAN: YSABEL KINNEY MD DATE OF SERVICE: 10/25/19 Discharge Plan Patient Name: EN RAINEY Facility: [facility]:[place] : 1950 Planned Disposition: Home Anticipated Discharge Date: Discharge Date: Expected LOS: Initial Reviewer: [email or web address] Initial Review Date: 10/19/2019 Generated: 10/25/19 3:49 pm Comments DCP- Discharge Planning Updated by [email or web address]: Sue Schaeffer on 10/24/19 4:[address] Patient had CABG today patient drowsy CM unable to complete discharge planning assessment. CM will continue to follow and assist as needed with discharge planning / needs. DCPIA - Discharge Planning Initial Assessment Updated by [email or web address]: Lindsay Rogers on 10/25/19 2:45 pm * Is the patient Alert and Oriented? Yes * PCP DR KINNEY * Pharmacy [facility] * Preadmission Environment Home with Family * ADLs Independent * Equipment Cane * Other Equipment DENIES ANY ADDITIONAL DME. HAS LARGE SHOWER W/ BENCH AND SAFETY BARS * List name and contact numbers for known caregivers / representatives who currently or will assist patient after discharge: BUCKY CATALAN- [facility]- [phone] * Verbal permission to speak to the caregivers and representatives has been obtained from the patient. Yes * Community resources currently utilized None * Please name any agencies selected above. N/A * Additional services required to return to the preadmission environment? No * Can the patient safely return to the preadmission environment? Yes * Has this patient been hospitalized within the prior 30 days at any hospital? No Coverage Notice Reviewer: [email or web address] Donavon Ureña Notice Issued Date-Time: 10/19/2019 16:39 Notice Type: Medicare Outpatient Observation Notice Notice Delivered To: Patient Relationship to Patient: Self Medical Practitioners Name: Delivery Method: HAND - Hand Delivered Tamara Days: Prior Verbal Notification: Recipient Understood Notice: Yes Recipient Signature: Yes Med Rec Note Co-signed by Attending: Coverage Notice Comment: HAWKINS DELIVERED, EXPLAINED, SIGNED, GIVEN, COPY PLACEDIN MR Last DP export: 10/25/19 1:43 pm Patient Name: EN RAINEY Page [id number] at 1450 All edits/amendments must be made on the electronic document DICTATION DATE: 10/25/191448 TUMBLE TAILSTOCK TURRET LATHE OPERATOR: LILY 10/25/191448 RPT#: [id number] DC DATE: STATUS: ADM IN [facility] [address] [place] [address] END OF REPORT
--- NOTE | 2019-10-25 14:58 | MORECARE ---
CASE MANAGEMENT DISCHARGE SUMMARY PATIENT: EN RAINEY UNIT: [id number] ADM DATE: 10/20/19 AGE: 69 : 49 SEX: M ROOM/BED: D.[facility] AUTHOR: NATALIADOC PHYSICIAN: REFERRING PHYSICIAN: YSABEL KINNEY MD DATE OF SERVICE: 10/25/19 Discharge Plan Patient Name: EN RAINEY Facility: [facility]:[place] : 1950 Planned Disposition: Home Anticipated Discharge Date: Discharge Date: Expected LOS: Initial Reviewer: [email or web address] Initial Review Date: 10/19/2019 Generated: 10/25/19 3:57 pm Comments DCP- Discharge Planning Updated by [email or web address]: Lindsay Rogers on 10/25/19 1:[address] HE IS SITTING OOB IN THE CHAIR. CM INTRODUCED SELF AND REQUESTED PERMISSION TO SPEAK WITH HIM REGARDING DISCHARGE PLANS AND NEEDS. PATIENT STATED HE FELT WELL ENOUGH TO PROCEED. HE PLANS TO RETURN TO HOME W/ HIS AT DISCHARGE. HE DOES NOT FEEL HE WILL NEED HOME HEALTH OR SKILLED / REHAB SERVICES AT THIS TIME. HE HAS A DTR WHO LIVES IN [place] AND HIS HAS A DTR WHO CAN ASSIST IF THE NEED SHOULD ARISE. PCP- DR KINNEY [facility]ACY- [facility] [place] HIS WILL PROVIDE TRANSPORTATION AT DISCHARGE. HIS CAME TO VISIT DURING ASSESSMENT. INTRODUCED MYSELF. THE PATIENT GAVE PERMISSION FOR CM TO DISCUSS DISCHARGE W/ HER. SHE IS IN AGREEMENT W/ THE PLAN. SHE FELT SHE MAY HAVE QUESTIONS NEARER TO DISCHARGE. CM ADVISED CASE MANAGEMENT IS AVAILABLE TO ASSIST. CM TO FOLLOW TO ASSIST IF NEEDED. DCP- Discharge Planning Updated by [id number]: Sue Schaeffer on 10/24/19 4:[address] Patient had CABG today patient drowsy CM unable to complete discharge planning assessment. CM will continue to follow and assist as needed with discharge planning / needs. DCPIA - Discharge Planning Initial Assessment Updated by [id number]: Lindsay Rogers on 10/25/19 2:45 pm * Is the patient Alert and Oriented? Yes * PCP DR KINNEY * [facility]acy [facility] [address] * Preadmission Environment Home with Family * ADLs Independent * Equipment Cane * Other Equipment DENIES ANY ADDITIONAL DME. HAS LARGE SHOWER W/ BENCH AND SAFETY BARS * List name and contact numbers for known caregivers / representatives who currently or will assist patient after discharge: BUCKY CATALAN- - [phone] * Verbal permission to speak to the caregivers and representatives has been obtained from the patient. Yes * Community resources currently utilized None * Please name any agencies selected above. N/A * Additional services required to return to the preadmission environment? No * Can the patient safely return to the preadmission environment? Yes * Has this patient been hospitalized within the prior 30 days at any hospital? No Coverage Notice Reviewer: [email or web address] Donavon Ureña Notice Issued Date-Time: 10/19/2019 16:39 Notice Type: Medicare Outpatient Observation Notice Notice Delivered To: Patient Relationship to Patient: Self Construction Project Coordinator Name: Delivery Method: HAND - Hand Delivered Tamara Days: Prior Verbal Notification: Recipient Understood Notice: Yes Recipient Signature: Yes Med Rec Note Co-signed by Attending: Coverage Notice Comment: HAWKINS DELIVERED, EXPLAINED, SIGNED, GIVEN, COPY PLACEDIN Last DP export: 10/25/19 1:50 pm Patient Name: EN RAINEY Page [phone] at 1458 All edits/amendments must be made on the electronic document DICTATION DATE: 10/25/191457 NUTRITIONAL SERVICES DIRECTOR: LILY 10/25/191457 RPT#: [id number] DC DATE: STATUS: ADM IN [facility] [address] [place] [address] END OF REPORT
--- NOTE | 2019-10-25 15:03 | NUR ---
AMIO DISCONTINUED. PT IV IS SALINE LOCKED POSITIONED FOR COMOFRT.
--- NOTE | 2019-10-25 20:19 | NUR ---
PT RECIEVED UP IN CHAIR, WATCHING TV. USES URINAL WITH 150ML OUTPUT NOTED. ASSIST TO BED WITH CABLES AND LINES. COMPLAINS OF PAIN WITH PRN PAIN MEDICATION GIVEN PER MAR. FRESH WATER PROVIDED. THERMOSTAT TURNED DOWN PER REQUEST. NO OTHER NEEDS MADE KNOWN. CALL LIGHT IN REACH. WILL CONTINUE TO OBSERVE
--- NOTE | 2019-10-25 21:50 | NUR ---
SCHEDULED MEDICATIONS GIVEN PER MAR. TOLERATED WELL. NO OTHER NEEDS NOTED. CALL LIGHT IN REACH. WILL CONTINUE TO OBSERVE.
--- NOTE | 2019-10-25 23:20 | NUR ---
PT RESTING WITH EYES CLOSED AND CHEST RISING. NO S/S OF DISTRESS. CALL LIGHT IN REACH. WILL CONTINUE TO OBSERVE.
[2019-10-26] VITALS (23 sets, daily range): BP systolic 97–146; BP diastolic 48–69
--- NOTE | 2019-10-26 01:50 | NUR ---
PT UP TO SIDE OF BED USES URINAL. BACK IN BED. CALL LIGHT IN REACH. WILL CONTINUE TO OBSERVE.
--- NOTE | 2019-10-26 03:48 | NUR ---
PT RESTING WITH EYES CLOSED AND CHEST RISING. EASILY AWOKEN TO VERBAL STIMULI. NO NEEDS NOTED. NO S/S OF DISTRESS. CALL LIGHT IN REACH. WILL CONTINUE TO OBSERVE.
[2019-10-26 05:46] LABS: HEMATOCRIT 29.9 % (42.0-54.0); HEMOGLOBIN 9.6 g/dL (13.5-17.5); MCH 28.1 pg (26.0-34.0); MCHC 32.1 g/dL (31.0-37.0); MCV 87.4 fL (80.0-100.0); MEAN PLATELET VOLUME 9.3 fL (7.4-10.4); RBC 3.42 10x6/uL (4.20-6.10); RDW 13.7 % (11.5-14.5)
[2019-10-26 05:50] LABS: WBC 11.3 10x3/uL (4.8-10.8)
[2019-10-26 06:14] LABS: ALBUMIN 2.4 g/dL (3.4-5.0); ALKALINE PHOSPHATASE 46 U/L (30-120); ALT (SGPT) 20 U/L (10-68); CALC OSMOLALITY 272 mosm/kg (275-300); CALCIUM 7.9 mg/dL (8.5-10.1); CARBON DIOXIDE 30.8 mmol/L (21.0-32.0); CHLORIDE - SERUM 102 mmol/L (98-107); CREATININE - SERUM 0.9 mg/dL (0.6-1.3); GLUCOSE 130 mg/dL (74-106); POTASSIUM - SERUM 4.4 mmol/L (3.5-5.1); PROTEIN - SERUM 4.9 g/dL (6.4-8.2); SODIUM 135 mmol/L (136-145); UREA NITROGEN 16 mg/dL (7-18); eGFR NON AFRICAN AMERICAN 89 mL/min (90-120)
--- NOTE | 2019-10-26 06:40 | NUR ---
BATH GIVEN WITH COMPLETE LINEN CHANGE. DRESSINGS TO SUBSTERNAL AND RIGHT UPPER LEG CHANGED. PT UP TO CHAIR. TOLERATED WELL.
--- NOTE | 2019-10-26 07:25 | NUR ---
SHIFT REPORT RECEIVED. AA&OX4. SITTING UP IN CHAIR. ON 2L O2 VIA NC. MIDSTERNAL INCISION WITH DRESSING C/D/I. SUBTERNAL DRESSING CDI. VANESSA DRAIN IN PLACE WITH SEROSANG DRAINAGE. TPM WIRES COILED AND SECURED. BILATERAL HARVEST SITES ENVIRONMENTAL SERVICES MANAGER. RU THIGH DRESSING C/D/I. RATES PAIN 7/10 AT INCISION SITE. NO FEVER NOTED AT THIS TIME. VSS. SAFETY MEASURES IN PLACE. WILL CONTINUE TO MONITOR.
--- NOTE | 2019-10-26 09:31 | NUR ---
BP 100/[address] VILLALBA NOTIFIED. HOLD LOPRESSOR PER DR. VILLALBA.
--- NOTE | 2019-10-26 10:10 | NUR ---
CVL DRESSING CHANGED AT THIS TIME. OLD DRESSING WAS FALLING OFF. STERILE TECHNIQUE USED. NO FURTHER NEEDS AT THIS TIME. WILL CONTINUE TO MONITOR.
--- NOTE | 2019-10-26 12:30 | NUR ---
DRESSING TO RIGHT UPPER THIGH SATURATED. CHANGED AT THIS TIME. IODINE OINTMENT APPLIED TO SITE, COVERED WITH 4X4S. PT RESTING COMFORTABLY ON 2L NC.
--- NOTE | 2019-10-26 13:06 | NUR ---
AMBULATING WITH PHYSICAL THERAPY AT THIS TIME.
--- NOTE | 2019-10-26 15:32 | NUR ---
O2 DECREASED FROM 2L TO 1L AT THIS TIME.
--- NOTE | 2019-10-26 15:39 | NUR ---
BATH OFFERED. PT STATED HE BATHED SELF EARLIER TODAY BEFORE DAYSHIFT.
--- NOTE | 2019-10-26 15:55 | NUR ---
PT REPORTS HAVING A COUGHING SPELL. PAIN 8/10 AT INCISION SITE A RESULT FROM COUGH. PERCOCET GIVEN PER ORDERS. DENIES FURTHER NEEDS. WILL CONTINUE TO MONITOR.
--- NOTE | 2019-10-26 19:00 | NUR ---
REPORT RECEIVED. RECEIVED PATIENT UP IN BEDSIDE CHAIR. AWAKE ALERT AND ORIENTED X 4. ASSESSMENT COMPLETED PER FLOW SHEET WITH NO ACUTE DISTRESS OBSERVED. MONITORS CONNECTED TO PATIENT WITH ALARMS SET. VSS. NSR ON MONITOR. MIDSTERNAL AND SUBSTERNAL DRSGS C/D/I. VANESSA COMPRESSED WITH MINIMAL SEROSANG FLUID IN BULB. CALL LIGHT IN REACH AND ABLE TO UTILIZE TO MAKE NEEDS KNOWN.
--- NOTE | 2019-10-26 20:30 | NUR ---
ASSISTED PATIENT TO BED PER REQUEST. PATIENT TRANSFERRED SELF WITHOUT DIFF. VSS. USING INCENTIVE SPIROMETER DIRECTED. CALL LIGHT IN REACH
--- NOTE | 2019-10-26 21:00 | NUR ---
AWAKE AND ALERT. VSS. DENIES NEEDS. CALL LIGHT IN REACH
--- NOTE | 2019-10-26 23:00 | NUR ---
AWAKE AND ALERT. REASSESSMENT COMPLETED PER FLOW SHEET WITH NO ACUTE DISTRESS OBSERVED. VSS. CONTINUE'S NSR ON MONITOR. CALL LIGHT IN REACH. DENIES NEEDS
[2019-10-27] VITALS (20 sets, daily range): BP systolic 95–130; BP diastolic 49–73
--- NOTE | 2019-10-27 01:00 | NUR ---
AWAKE AND ALERT. 02 SAT 88% ON 02 1L/MIN. 02 INCREASED TO 2L/MIN PER NC PATIENT INSTRUCTED TO USE INCENTIVE SPIROMETER AND COUGH USING HEART PILLOW TO SPLINT TO CLEAR AIRWAY. PATIENT COMPLIANT. PRODUCTIVE COUGH NOTED WITH SMALL AMOUNT OF THICK MORALES SPUTUM OBSERVED. 02 SAT UP TO 95%.
--- NOTE | 2019-10-27 03:00 | NUR ---
REASSESSMENT COMPLETED PER FLOW SHEET WITH NO ACUTE DISTRESS OBSERVED. VSS. CALL LIGHT IN REACH. DENIES NEEDS
--- NOTE | 2019-10-27 05:00 | NUR ---
AWAKE AND ALERT. VSS. CALL LIGHT IN REACH.
--- NOTE | 2019-10-27 05:30 | NUR ---
AM LAB DRAWN FROM RT IJ CVL. SUBSTERNAL DRESSING CHANGED. DRESSING TO RT UPPER THIGH INCISION/HARVEST SITE SATURATED WITH SEROSANGUINEOUS FLUID, BANDAGE REMOVED/ CLEANED WITH BETADINE ( NO SURGICAL GLUE SEEN AT THIS SITE) AND REDRESSED WITH DRY DRESSING. PATIENT WOULD LIKE TO WAIT UNTIL LATER THIS AM FOR BATH AND WOULD LIKE TO BATHE HIMSELF. JHON WELL. CALL LIGHT IN REACH
[2019-10-27 06:07] LABS: HEMATOCRIT 28.7 % (42.0-54.0); HEMOGLOBIN 9.2 g/dL (13.5-17.5); MCH 27.8 pg (26.0-34.0); MCHC 32.1 g/dL (31.0-37.0); MCV 86.7 fL (80.0-100.0); MEAN PLATELET VOLUME 8.7 fL (7.4-10.4); RBC 3.31 10x6/uL (4.20-6.10); RDW 13.9 % (11.5-14.5); WBC 7.6 10x3/uL (4.8-10.8)
[2019-10-27 06:22] LABS: ALBUMIN 2.4 g/dL (3.4-5.0); ALKALINE PHOSPHATASE 48 U/L (30-120); ALT (SGPT) 20 U/L (10-68); BILIRUBIN - TOTAL 0.43 mg/dL (0.2-1.3); CALC OSMOLALITY 277 mosm/kg (275-300); CALCIUM 7.7 mg/dL (8.5-10.1); CARBON DIOXIDE 30.8 mmol/L (21.0-32.0); CHLORIDE - SERUM 103 mmol/L (98-107); CREATININE - SERUM 0.8 mg/dL (0.6-1.3); GLUCOSE 112 mg/dL (74-106); PROTEIN - SERUM 5.1 g/dL (6.4-8.2); SODIUM 138 mmol/L (136-145); UREA NITROGEN 14 mg/dL (7-18); eGFR NON AFRICAN AMERICAN > 90 mL/min (90-120)
--- NOTE | 2019-10-27 06:45 | NUR ---
UP TO BEDSIDE CHAIR. JHON WELL. VSS. CALL LIGHT IN REACH
--- NOTE | 2019-10-27 10:00 | NUR ---
DR. SMITH HERE. CONDITION UPDATE GIVEN. NEW ORDERS REC'D
--- NOTE | 2019-10-27 10:19 | NUR ---
Nutrition Follow-up: POD 3 CABG. Pt reports good appetite; states he ate 100% of breakfast this AM. Diet: Diabetic Wt: 148.4# (10/26); 147.7# (10/25); 144# (10/18) Last BM: 10/25 Labs noted: Glu 112, Ca 7.7, Alb 2.4 Meds noted: Colace, Pepcid -Monitor wt. -RD following.
--- NOTE | 2019-10-27 11:22 | NUR ---
1100: IV STARTED IN R VENTRAL FOREARM WITH 20G ON 1ST ATTEMPT. 1105: R IJ DC'D. MANUAL PRESSURE HELD X 2 MIN. SITE DRESSED WITH 2X2 AND TEGADERM.
--- NOTE | 2019-10-27 19:00 | NUR ---
REPORT RECEIVED. RECEIVED PATIENT SITTING UP ON SIDE OF BED. AWAKE AND ALERT. ORIENTED X 4. SHIFT ASSESSMENT COMPLETED PER FLOW SHEET WITH NO ACUTE DISTRESS OBSERVED. MIDSTERNAL/SUBSTERNAL DRSGS CDI. VANESSA INTACT/PATENT/ COMPRESSED WITH SMALL AMOUNT OF SEROSANG FLUID IN BULB. CONNECTED TO MONITORS WIHT ALARMS SET . VSS. CALL LIGHT IN REACH AND ABLE TO UTILIZE TO MAKE NEEDS KNOWN
--- NOTE | 2019-10-27 20:21 | NUR ---
PATIENT STANDING AT BEDSIDE. PM MEDS TAKEN WITHOUT DIFF. ASKED TO BE DISCONNECTED FROM MONITORS TO WALK AROUND/ DISCONNECTED REQUESTED. VSS
--- NOTE | 2019-10-27 21:00 | NUR ---
AMBULATING IN HALLWAY. GAIT STEADY/DENIES NEEDS
--- NOTE | 2019-10-27 23:00 | NUR ---
REASSESSMENT COMPLETED PER FLOW SHEET WITH NO ACUTE DISTRESS OBSERVED. VSS. CONT NSR ON MONITOR. WILL CONT CURRENT POC. CALL LIGHT IN REACH
[2019-10-28] VITALS (12 sets, daily range): BP systolic 97–117; BP diastolic 45–60
--- NOTE | 2019-10-28 01:00 | NUR ---
AWAKE AND ALERT. VSS. CALL LIGHT IN REACH
--- NOTE | 2019-10-28 05:00 | NUR ---
RESTING WITH EYES CLOSED. VSS. CALL LIGHT IN REACH
[2019-10-28 05:54] LABS: HEMATOCRIT 27.6 % (42.0-54.0); HEMOGLOBIN 8.8 g/dL (13.5-17.5); MCH 27.8 pg (26.0-34.0); MCHC 31.9 g/dL (31.0-37.0); MCV 87.3 fL (80.0-100.0); RBC 3.16 10x6/uL (4.20-6.10)
[2019-10-28 06:31] LABS: ALBUMIN 2.3 g/dL (3.4-5.0); ALKALINE PHOSPHATASE 48 U/L (30-120); ALT (SGPT) 19 U/L (10-68); BILIRUBIN - TOTAL 0.57 mg/dL (0.2-1.3); CALC OSMOLALITY 274 mosm/kg (275-300); CALCIUM 7.9 mg/dL (8.5-10.1); CARBON DIOXIDE 30.1 mmol/L (21.0-32.0); CHLORIDE - SERUM 103 mmol/L (98-107); GLUCOSE 111 mg/dL (74-106); POTASSIUM - SERUM 3.9 mmol/L (3.5-5.1); PROTEIN - SERUM 5.2 g/dL (6.4-8.2); SODIUM 136 mmol/L (136-145); eGFR NON AFRICAN AMERICAN 78 mL/min (90-120)
[2019-10-28 06:33] LABS: UREA NITROGEN 18 mg/dL (7-18)
--- NOTE | 2019-10-28 12:15 | NUR ---
DR. SMITH HERE. PLAN FOR DISCHARGE IF OK WITH PRIMARY CARE AND PULMONARY. VANESSA DRAIN AND VENTRICULAR PACING WIRE DC'D BY DR. SMITH
[2019-10-28] MEDS ORDERED: AMIODARONE HCL200 MG PO ×2 (13:02→13:05)
--- NOTE | 2019-10-28 13:45 | NUR ---
1325: DR. ECHOLS PAGED. 1340: DR. ECHOLS AND DR. BRENDON DENNEY FOR DISCHARGE.
--- NOTE | 2019-10-28 14:51 | NUR ---
1408: DISCHARGE INSTUCTIONS INCLUDING HOW TO TAKE CARE OF WOUNDS AND REVIEWING NEW MEDICATIONS REVIEWED WITH PATIENT AND . PRESCRIPTION GIVEN FOR PAIN MEDICATON BY DR. SMITH. 1420: SALINE LOCK IN R VENTRAL FOREARM DC'D. 1440: DISCHARGED HOME WITH . ESCORT TO VEHICLE BY WHEELCHAIR.
--- NOTE | 2019-10-28 15:25 | MORECARE ---
CASE MANAGEMENT DISCHARGE SUMMARY PATIENT: EN RAINEY UNIT: [id number] ADM DATE: 10/20/19 AGE: 69 : 48 SEX: M ROOM/BED: D[facility] AUTHOR: NATALIA,DOC PHYSICIAN: REFERRING PHYSICIAN: YSABEL KINNEY MD DATE OF SERVICE: 10/28/19 Discharge Plan Patient Name: EN RAINEY Facility: [facility]:[place] : 1950 Planned Disposition: Home Anticipated Discharge Date: Discharge Date: 10/28/2019 Expected LOS: Initial Reviewer: [email or web address] Initial Review Date: 10/19/2019 Generated: 10/28/19 4:24 pm DCP- Discharge Planning Updated by [email or web address]: Lindsay Rogers on 10/25/19 1:[address] HE IS SITTING OOB IN THE CHAIR. CM INTRODUCED SELF AND REQUESTED PERMISSION TO SPEAK WITH HIM REGARDING DISCHARGE PLANS AND NEEDS. PATIENT STATED HE FELT WELL ENOUGH TO PROCEED. HE PLANS TO RETURN TO HOME W/ HIS AT DISCHARGE. HE DOES NOT FEEL HE WILL NEED HOME HEALTH OR SKILLED / REHAB SERVICES AT THIS TIME. HE HAS A DTR WHO LIVES IN [place] AND HIS HAS A DTR WHO CAN ASSIST IF THE NEED SHOULD ARISE. PCP- [facility] [place] [facility] WILL PROVIDE TRANSPORTATION AT DISCHARGE. HIS CAME TO VISIT DURING ASSESSMENT. INTRODUCED MYSELF. THE PATIENT GAVE PERMISSION FOR CM TO DISCUSS DISCHARGE W/ HER. SHE IS IN AGREEMENT W/ THE PLAN. SHE FELT SHE MAY HAVE QUESTIONS NEARER TO DISCHARGE. CM ADVISED CASE MANAGEMENT IS AVAILABLE TO ASSIST. CM TO FOLLOW TO ASSIST IF NEEDED. 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 CM will continue to follow and assist as needed with discharge planning / needs. DCPIA - Discharge Planning Initial Assessment Updated by [email or web address]: Lindsay Rogers on 10/25/19 2:45 pm * Is the patient Alert and Oriented? Yes * PCP DR KINNEY * Pharmacy [facility] [address] * Preadmission Environment Home with Family * ADLs Independent * Equipment Cane * Other Equipment DENIES ANY ADDITIONAL DME. HAS LARGE SHOWER W/ BENCH AND SAFETY BARS * List name and contact numbers for known caregivers / representatives who currently or will assist patient after discharge: BUCKY CATALAN- - [phone] * Verbal permission to speak to the caregivers and representatives has been obtained from the patient. Yes * Community resources currently utilized None * Please name any agencies selected above. N/A * Additional services required to return to the preadmission environment? No * Can the patient safely return to the preadmission environment? Yes * Has this patient been hospitalized within the prior 30 days at any hospital? No Coverage Notice Reviewer: [id number] Donavon rUeña Notice Issued Date-Time: 10/19/2019 16:39 Notice Type: Medicare Outpatient Observation Notice Notice Delivered To: Patient Relationship to Patient: Self Cogeneration Operator Name: Delivery Method: HAND - Hand Delivered Tamara Days: Prior Verbal Notification: Recipient Understood Notice: Yes Recipient Signature: Yes Med Rec Note Co-signed by Attending: Coverage Notice Comment: [facility] DELIVERED, EXPLAINED, SIGNED, GIVEN, COPY PLACEDIN MR Reviewer: [email or web address] Donavon Schaeffer Notice Issued Date-Time: 10/28/2019 14:20 Notice Type: IM Discharge Notice Notice Delivered To: Patient Relationship to Patient: Self Cogeneration Operator Name: Delivery Method: HAND - Hand Delivered Tamara Days: Prior Verbal Notification: Recipient Understood Notice: Yes Recipient Signature: Yes Med Rec Note Co-signed by Attending: Coverage Notice Comment: Last DP export: 10/25/19 1:58 pm Patient Name: EN RAINEY Page [id number] at 1525 All edits/amendments must be made on the electronic document DICTATION DATE: 10/28/19 1524 SEMICONDUCTOR BONDER: LILY 10/28/19 1524 RPT#: [id number] DC DATE:10/28/19 STATUS: DIS IN [facility] [address] [place] [address] END OF REPORT
== END 2019-10-28 14:40 | disposition home or self-care (01) | DRG 234 ==
LOC: D.M2 12:18 → OBSVTIME 12:18 → D.M2 10-20 15:15 → D.CVICU 10-20 15:15
PROVIDERS: Anesthesiology; Internal Medicine Cardiovascular Disease; Internal Medicine Pulmonary Disease; Thoracic Surgery (Cardiothoracic Vascular Surgery); ADMIT Family Medicine; ATTEND Family Medicine
PROC: B2151ZZ Fluoroscopy of Left Heart using Low Osmolar Contrast (ICD-10-PCS; 2019-10-20)
PROC: 4A023N7 Measurement of Cardiac Sampling and Pressure, Left Heart, Percutaneous Approach (ICD-10-PCS; 2019-10-20)
PROC: B2111ZZ Fluoroscopy of Multiple Coronary Arteries using Low Osmolar Contrast (ICD-10-PCS; principal; 2019-10-20 09:00)
PROC: 02100Z9 Bypass Coronary Artery, One Artery from Left Internal Mammary, Open Approach (ICD-10-PCS; 2019-10-24)
PROC: 021109W Bypass Coronary Artery, Two Arteries from Aorta with Autologous Venous Tissue, Open Approach (ICD-10-PCS; 2019-10-24)
PROC: 06BP4ZZ Excision of Right Saphenous Vein, Percutaneous Endoscopic Approach (ICD-10-PCS; 2019-10-24)
PROC: 5A1221Z Performance of Cardiac Output, Continuous (ICD-10-PCS; 2019-10-24)
DX: I25.110 Atherosclerotic heart disease of native coronary artery with unstable angina pectoris (principal); N40.0 Benign prostatic hyperplasia without lower urinary tract symptoms; K80.20 Calculus of gallbladder without cholecystitis without obstruction; F41.9 Anxiety disorder, unspecified; I45.10 Unspecified right bundle-branch block; E88.81 Metabolic syndrome and other insulin resistance; E11.9 Type 2 diabetes mellitus without complications; E78.5 Hyperlipidemia, unspecified; J43.9 Emphysema, unspecified; E03.9 Hypothyroidism, unspecified; M19.90 Unspecified osteoarthritis, unspecified site

== ENCOUNTER → 2019-11-15 12:56 | Outpatient (CLI) | payer MEDICARE ==
[2019-10-24 08:09] VITALS: BMI 21.2
[~2019-11-15 12:56] MED LIST changes: +AMIODARONE HCL200 MG PO
[2019-11-15 13:39] LABS: BASOPHILS 0.3 % (0-2); EOSINOPHILS 2.1 % (0-7); HEMATOCRIT 37.4 % (42.0-54.0); HEMOGLOBIN 11.6 g/dL (13.5-17.5); IMMATURE GRANULOCYTES 0.3 % (0-5); LYMPHOCYTES 7.5 % (15-50); MCH 27.5 pg (26.0-34.0); MCV 88.6 fL (80.0-100.0); MEAN PLATELET VOLUME 8.3 fL (7.4-10.4); MONOCYTES 5.6 % (2-11); NEUTROPHILS 84.2 % (40-80); PLATELET COUNT 248 10x3/uL (130-400); RBC 4.22 10x6/uL (4.20-6.10); RDW 14.2 % (11.5-14.5); WBC 7.5 10x3/uL (4.8-10.8)
[2019-11-15 13:42] LABS: ANION GAP 6.4 mmol/L (8-16); CALCIUM 8.5 mg/dL (8.5-10.1); CARBON DIOXIDE 32.1 mmol/L (21.0-32.0); CREATININE - SERUM 1.1 mg/dL (0.6-1.3); POTASSIUM - SERUM 4.5 mmol/L (3.5-5.1)
== END | disposition home or self-care (01) ==
LOC: D.LAB 12:56
PROVIDERS: ATTEND Thoracic Surgery (Cardiothoracic Vascular Surgery)
DX: Z95.1 Presence of aortocoronary bypass graft (principal)

== ENCOUNTER → 2020-02-09 09:06 | Outpatient (CLI) | payer MEDICARE ==
[2019-10-24 08:09] VITALS: BMI 21.2
== END | disposition home or self-care (01) ==
LOC: D.MRI 09:06
PROVIDERS: ATTEND Family Medicine
DX: M54.5 Low back pain (principal); S32.000A Wedge compression fracture of unspecified lumbar vertebra, initial encounter for closed fracture

== ENCOUNTER → 2020-10-02 08:32 | Outpatient (CLI) | payer MEDICARE ==
[2019-10-24 08:09] VITALS: BMI 21.2
== END | disposition home or self-care (01) ==
LOC: D.LAB 08:32
PROVIDERS: ATTEND Internal Medicine Pulmonary Disease
DX: J44.9 Chronic obstructive pulmonary disease, unspecified (principal)

== ENCOUNTER → 2020-10-07 12:12 | Outpatient (CLI) | payer MEDICARE ==
[2019-10-24 08:09] VITALS: BMI 21.2
== END | disposition home or self-care (01) ==
LOC: D.RT 12:12
PROVIDERS: ATTEND Internal Medicine Pulmonary Disease
DX: J44.9 Chronic obstructive pulmonary disease, unspecified (principal)

== ENCOUNTER → 2020-10-14 08:03 | Outpatient (CLI) | payer MEDICARE ==
[2019-10-24 08:09] VITALS: BMI 21.2
== END | disposition home or self-care (01) ==
LOC: D.HCCECHO 10-02 13:00
PROVIDERS: ATTEND Internal Medicine Cardiovascular Disease
DX: I25.10 Atherosclerotic heart disease of native coronary artery without angina pectoris (principal)